=== PATIENT | male | born 1985 | race Two or more races ===

== ENCOUNTER 2016-10-15 01:40 | Emergency (ER) | payer SELFPAY ==
[~2016-10-15] VITALS: Ht 167.6 cm; Wt 60.0 kg
[2016-10-15 01:41] VITALS: BP 133/99
== END 2016-10-15 02:04 | disposition home or self-care (01) ==
LOC: ED 01:58
DX: S00.81XA Abrasion of other part of head, initial encounter (principal); F31.9 Bipolar disorder, unspecified; F20.9 Schizophrenia, unspecified; F43.10 Post-traumatic stress disorder, unspecified; X58.XXXA Exposure to other specified factors, initial encounter; Y93.89 Activity, other specified; Y99.8 Other external cause status; Y92.89 Other specified places as the place of occurrence of the external cause
CPT/HCPCS: 99283